=== PATIENT | female | born 2000 | race Caucasian/White ===

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

== ENCOUNTER 2019-06-08 15:18 | Emergency (ER) | payer BC ==
[2019-06-08 15:29] VITALS: RESP 18; TEMP 97.8
[2019-06-08] MEDS ORDERED: SODIUM CHLORIDE 0.9% 1,000 ML IV STA (15:35)
[2019-06-08 16:26] LABS: Basophils # (A) 0.1 k/uL (0-0.2); Basophils % (A) 1 %; Eosinophils # (A) 0.1 k/uL (0-0.7); Eosinophils % (A) 1 %; HCT 38.4 % (34.0-46.0); HGB 12.5 gm/dL (11.4-16.0); Lymphocytes # (A) 0.8 k/uL (1.0-4.8); Lymphocytes % (A) 10 %; MCH 26.9 pg (25.0-35.0); MCHC 32.6 g/dL (31.0-37.0); MCV 82.4 fL (80.0-100.0); Mean Platelet Volume 7.3; Monocytes # (A) 0.4 k/uL (0-1.0); Monocytes % (A) 5 %; Neutrophils # (A) 6.7 k/uL (1.3-7.7); Neutrophils % (A) 83 %; Platelet Count 270 k/uL (150-450); RBC 4.66 m/uL (3.80-5.40); RDW 13.2 % (11.5-15.5); WBC 8.1 k/uL (4.0-11.0)
[2019-06-08 16:39] LABS: ALT 19 U/L (4-34); AST 21 U/L (14-36); African American GFR (CKD) >90 (>60 ml/min/1.73 sqM); Albumin 4.7 g/dL (3.5-5.0); Alkaline Phosphatase 76 U/L (38-126); Anion Gap 13 mmol/L; Blood Urea Nitrogen 11 mg/dL (7-17); Calcium 9.6 mg/dL (8.4-10.2); Carbon Dioxide 21 mmol/L (22-30); Chloride 106 mmol/L (98-107); Glucose 107 mg/dL (74-99); Magnesium 1.8 mg/dL (1.6-2.3); Non-African American GFR(CKD) >90 (>60 ml/min/1.73 sqM); Potassium 4.2 mmol/L (3.5-5.1); Sodium 140 mmol/L (137-145); Total Protein 7.8 g/dL (6.3-8.2)
[2019-06-08 16:42] VITALS: BP 116/87
[2019-06-08 16:44] LABS: INR 1.1 (<1.2); Prothrombin Time 11.3 sec (9.0-12.0)
[2019-06-08 17:08] LABS: Appearance,Urine Cloudy (Clear); Bilirubin,Urine Negative (Negative); Blood,Urine Negative (Negative); Color,Urine Yellow; Glucose,Urine (UA) Negative (Negative); Hyaline Casts,Urine 1 /lpf (0-2); Ketones,Urine Negative (Negative); Leukocyte Esterase,Urine Negative (Negative); Mucus,Urine Occasional /hpf; Nitrite,Urine Negative (Negative); PH, Urine 6.5 (5.0-8.0); Protein,Urine Trace (Negative); RBC,Urine <1 /hpf (0-5); Specific Gravity,Urine 1.024 (1.001-1.035); Squamous Epithelial Cell,Urine 8 /hpf (0-4); Urobilinogen,Urine <2.0 mg/dL (<2.0); WBC,Urine 2 /hpf (0-5)
[2019-06-08 17:19] LABS: Amphetamine Screen,Urine Not Detected (NotDetected); Barbiturate Screen,Urine Not Detected (NotDetected); Benzodiazepines Screen,Urine Not Detected (NotDetected); Cocaine Screen,Urine Not Detected (NotDetected); Methadone Screen, Urine Not Detected (NotDetected); Opiate Screen,Urine Not Detected (NotDetected); Oxycodone Screen, Urine Not Detected (NotDetected); Phencyclidine Screen,Urine Not Detected (NotDetected); Tricyclic Antidepressant,Urine Not Detected (NotDetected); Urn Cannabinoid Scrn Detected (NotDetected)
--- NOTE | 2019-06-08 17:42 | ED ---
General Adult HPI - General Chief complaint: Arrhythmia/Palpitations Stated complaint: Tachycardia Time Seen by Provider: 06/08/19 15:31 Source: patient, family, EMS, RN notes reviewed, old records reviewed Mode of arrival: EMS Limitations: altered mental status - History of Present Illness Initial comments: 18-year-old female patient presents to ED for chief complaint of nausea, heart palpitations, mild dizziness. Patient reports that she ate a cake which was laced marijuana. After she began to feel her heart racing and some dizziness and nausea without emesis. Patient went to urgent care at a time her heart rate is elevated reportedly in the 150s 160s. They then sent her here. Denies any chest pain shortness of breath. Denies a chance of being any abdominal pain. Denies any other complaints at this time. Systemic: Pt denies fatigue, fever/chills, rash. Pt denies weakness, night sweats, weight loss. Neuro: Pt denies headache, visual disturbances, syncope or pre-syncope. HEENT: Pt denies ocular discharge or irritation, otalgia, rhinorrhea, pharyngitis or notable lymphadenopathy. Cardiopulmonary: Pt denies chest pain, SOB, heart palpitations, dyspnea on exertion. Abdominal/GI: Pt denies abdominal pain, n/v/d. : Pt denies dysuria, burning w/ urination, frequency/urgency. Denies new onset urinary or bowel incontinence. MSK: Pt denies myalgia, loss of strength or function in extremities. Neuro: Pt denies new onset weakness, paresthesias. - Related Data Home Medications Medication Instructions Recorded Confirmed Apri 28 Day 1 tab PO HS 08/21/17 08/21/17 Folic Acid 0.4 mg PO DAILY 08/21/17 08/21/17 levETIRAcetam 750 mg PO BID 08/21/17 08/21/17 Allergies Allergy/AdvReac Type Severity Reaction Status Date / Time No Known Allergies Allergy Verified 10/26/18 14:53 Review of Systems ROS Statement: Those systems with pertinent positive or pertinent negative responses have been documented in the HPI. ROS Other: All systems not noted in ROS Statement are negative. Past Medical History Past Medical History: Seizure Disorder History of Any Multi-Drug Resistant Organisms: None Reported Past Surgical History: Orthopedic Surgery Additional Past Surgical History / Comment(s): Left ACL, fx right finger Past Psychological History: No Psychological Hx Reported Smoking Status: Never smoker Past Alcohol Use History: Occasional Past Drug Use History: Marijuana General Exam - General Exam Comments Initial Comments: Constitutional: NAD, AOX3, Pt has pleasant affect. HEENT: NC/AT, trachea midline, neck supple, no lymphadenopathy. Posterior pharynx non erythematous, without exudates. External ears appear normal, without discharge. Mucous membranes moist. Eyes PERRLA, EOM intact. There is no scleral icterus. No pallor noted. Cardiopulmonary: RRR, no murmurs, rubs or gallops, no JVD noted. Lungs CTAB in anterior and posterior her. No peripheral edema. Abdominal exam: Abdomen soft and non-distended. Abdomen non-tender to palpation in all 4 quadrants. Bowel sounds active in LLQ. No hepatosplenomegaly. No ecchymosis Neuro: CN II-XII intact. No nuchal rigidity. No raccon eyes, no noonan sign, no hemotympanum. No cervical spinal tenderness. MSK: No posterior calf tenderness bilaterally, homans sign negative bilaterally. Posterior tibialis and radial pulse +2 bilaterally. Sensation intact in upper and lower extremities. Full active ROM in upper and lower extremities, 5/5 stregnth. Limitations: altered mental status Course Vital Signs 06/08/19 06/08/19 15:22 16:42 Temperature 97.8 F Pulse Rate 124 H 110 H Respiratory 18 18 Rate Blood Pressure 101/70 116/87 O2 Sat by Pulse 100 97 Oximetry Medical Decision Making - Medical Decision Making 18-year-old female patient presents to ED for heart palpitations, elevated heart rate, some dizziness and nausea after eating a marijuana cake. Was sent over from urgent care. Patient vital signs did initially displayed mild tachycardia. Laboratory investigations are nonimmpressive. He a negative. Drug screen did show positive for THC. After administration of fluids patient is asymptomatic. Heart rate 86 at discharge. Denies any complaints. Will be advised to or marijuana products or illicit drugs going forward. We'll turn ER if condition worsens. Case discussed with Dr. Fraga. - Lab Data Result diagrams: 06/08/19 16:05 06/08/19 16:05 Lab Results 06/08/19 06/08/19 06/08/19 Range/Units 16:05 16:05 16:05 WBC 8.1 (4.0-11.0) k/uL RBC 4.66 (3.80-5.40) m/uL Hgb 12.5 (11.4-16.0) gm/dL Hct 38.4 (34.0-46.0) % MCV 82.4 (80.0-100.0) fL MCH 26.9 (25.0-35.0) pg MCHC 32.6 (31.0-37.0) g/dL RDW 13.2 (11.5-15.5) % Plt Count 270 (150-450) k/uL Neutrophils % 83 % Lymphocytes % 10 % Monocytes % 5 % Eosinophils % 1 % Basophils % 1 % Neutrophils # 6.7 (1.3-7.7) k/uL Lymphocytes # 0.8 L (1.0-4.8) k/uL Monocytes # 0.4 (0-1.0) k/uL Eosinophils # 0.1 (0-0.7) k/uL Basophils # 0.1 (0-0.2) k/uL PT 11.3 (9.0-12.0) sec INR 1.1 (<1.2) APTT 22.0 (22.0-30.0) sec Sodium 140 (137-145) mmol/L Potassium 4.2 (3.5-5.1) mmol/L Chloride 106 (98-107) mmol/L Carbon Dioxide 21 L (22-30) mmol/L Anion Gap 13 mmol/L BUN 11 (7-17) mg/dL Creatinine 0.86 (0.52-1.04) mg/dL Est GFR (CKD-EPI)AfAm >90 (>60 ml/min/1.73 sqM) Est GFR (CKD-EPI)NonAf >90 (>60 ml/min/1.73 sqM) Glucose 107 H (74-99) mg/dL Calcium 9.6 (8.4-10.2) mg/dL Magnesium 1.8 (1.6-2.3) mg/dL Total Bilirubin 1.0 (0.2-1.3) mg/dL AST 21 (14-36) U/L ALT 19 (4-34) U/L Alkaline Phosphatase 76 (38-126) U/L Troponin I (0.000-0.034) ng/mL Total Protein 7.8 (6.3-8.2) g/dL Albumin 4.7 (3.5-5.0) g/dL TSH 1.010 (0.465-4.680) mIU/L Urine Color Urine Appearance (Clear) Urine pH (5.0-8.0) Ur Specific [place] (1.001-1.035) Urine Protein (Negative) Urine Glucose (UA) (Negative) Urine Ketones (Negative) Urine Blood (Negative) Urine Nitrite (Negative) Urine Bilirubin (Negative) Urine Urobilinogen (<2.0) mg/dL Ur Leukocyte Esterase (Negative) Urine RBC (0-5) /hpf Urine WBC (0-5) /hpf Ur Squamous Epith Cells (0-4) /hpf Hyaline Casts (0-2) /lpf Urine Mucus (None) /hpf Urine HCG, Qual (Not Detectd) Urine Opiates Screen (NotDetected) Ur Oxycodone Screen (NotDetected) Urine Methadone Screen (NotDetected) Ur Propoxyphene Screen (NotDetected) Ur Barbiturates Screen (NotDetected) U Tricyclic Antidepress (NotDetected) Ur Phencyclidine Scrn (NotDetected) Ur Amphetamines Screen (NotDetected) U Methamphetamines Scrn (NotDetected) U Benzodiazepines Scrn (NotDetected) Urine Cocaine Screen (NotDetected) U Marijuana (THC) Screen (NotDetected) 06/08/19 06/08/19 06/08/19 Range/Units 16:05 16:45 16:45 WBC (4.0-11.0) k/uL RBC (3.80-5.40) m/uL Hgb (11.4-16.0) gm/dL Hct (34.0-46.0) % MCV (80.0-100.0) fL MCH (25.0-35.0) pg MCHC (31.0-37.0) g/dL RDW (11.5-15.5) % Plt Count (150-450) k/uL Neutrophils % % Lymphocytes % % Monocytes % % Eosinophils % % Basophils % % Neutrophils # (1.3-7.7) k/uL Lymphocytes # (1.0-4.8) k/uL Monocytes # (0-1.0) k/uL Eosinophils # (0-0.7) k/uL Basophils # (0-0.2) k/uL PT (9.0-12.0) sec INR (<1.2) APTT (22.0-30.0) sec Sodium (137-145) mmol/L Potassium (3.5-5.1) mmol/L Chloride (98-107) mmol/L Carbon Dioxide (22-30) mmol/L Anion Gap mmol/L BUN (7-17) mg/dL Creatinine (0.52-1.04) mg/dL Est GFR (CKD-EPI)AfAm (>60 ml/min/1.73 sqM) Est GFR (CKD-EPI)NonAf (>60 ml/min/1.73 sqM) Glucose (74-99) mg/dL Calcium (8.4-10.2) mg/dL Magnesium (1.6-2.3) mg/dL Total Bilirubin (0.2-1.3) mg/dL AST (14-36) U/L ALT (4-34) U/L Alkaline Phosphatase (38-126) U/L Troponin I <0.012 (0.000-0.034) ng/mL Total Protein (6.3-8.2) g/dL Albumin (3.5-5.0) g/dL TSH (0.465-4.680) mIU/L Urine Color Yellow Urine Appearance Cloudy H (Clear) Urine pH 6.5 (5.0-8.0) Ur Specific [place] 1.024 (1.001-1.035) Urine Protein Trace H (Negative) Urine Glucose (UA) Negative (Negative) Urine Ketones Negative (Negative) Urine Blood Negative (Negative) Urine Nitrite Negative (Negative) Urine Bilirubin Negative (Negative) Urine Urobilinogen <2.0 (<2.0) mg/dL Ur Leukocyte Esterase Negative (Negative) Urine RBC <1 (0-5) /hpf Urine WBC 2 (0-5) /hpf Ur Squamous Epith Cells 8 H (0-4) /hpf Hyaline Casts 1 (0-2) /lpf Urine Mucus Occasional H (None) /hpf Urine HCG, Qual Not Detected (Not Detectd) Urine Opiates Screen Not Detected (NotDetected) Ur Oxycodone Screen Not Detected (NotDetected) Urine Methadone Screen Not Detected (NotDetected) Ur Propoxyphene Screen Not Detected (NotDetected) Ur Barbiturates Screen Not Detected (NotDetected) U Tricyclic Antidepress Not Detected (NotDetected) Ur Phencyclidine Scrn Not Detected (NotDetected) Ur Amphetamines Screen Not Detected (NotDetected) U Methamphetamines Scrn Not Detected (NotDetected) U Benzodiazepines Scrn Not Detected (NotDetected) Urine Cocaine Screen Not Detected (NotDetected) U Marijuana (THC) Screen Detected H (NotDetected) - EKG Data -: EKG Interpreted by Me (and Dr. Fraga ) EKG Comments: ventricular rate 99, FL interval 156, QRS 86, QT/QTC 340 since 436. Normal sinus rhythm, normal EKG, no concern for acute ischemia. Disposition Clinical Impression: Marijuana use, Palpitations Disposition: HOME SELF-CARE Condition: Stable Instructions (If sedation given, give patient instructions): Heart Palpitations (ED), Cannabis Abuse (ED) Additional Instructions: follow-up with primary care provider tomorrow. Return to ER if condition worsens in any way. Is patient prescribed a controlled substance at d/c from ED?: No Referrals: Dionne Oseguera DO [Primary Care Provider] - 1-2 days
[2019-06-08 18:12] VITALS: PULSE 89
== END 2019-06-08 18:11 | disposition home or self-care (01) ==
LOC: EC 15:18
DX: F12.988 Cannabis use, unspecified with other cannabis-induced disorder (principal); R00.2 Palpitations; R00.0 Tachycardia, unspecified; R42 Dizziness and giddiness; R11.0 Nausea; G40.909 Epilepsy, unspecified, not intractable, without status epilepticus; Z79.899 Other long term (current) drug therapy
CPT/HCPCS: 36415; 80053; 80306; 81001; 81025; 83735; 84443; 84484; 85025; 85610; 85730; 93005; 96360; 99285

== ENCOUNTER 2020-07-21 18:32 | Outpatient (CLI) | payer BC ==
[2020-07-21 19:24] VITALS: BP 119/83; PULSE 78; RESP 16; TEMP 97.5
--- NOTE | 2020-08-07 10:11 | P.MSEPDOC ---
Presenting Problems - Arrival Data Date of Arrival on Unit: 07/21/20 Time of Arrival on Unit: 18:22 Mode of Transport: Ambulatory - Complaint OB-Reason for Admission/Chief Complaint: Rule Out SROM Medical History - Information : 1 Para: 0 Number of Living Children: 0 - Gestational Age Gestational Age by QUANG (wks/days): 36 Weeks and 4 Days Review of Systems - Review of Systems Constitutional: No problems Breast: No problems ENT: No problems Cardiovascular: No problems Respiratory: No problems Gastrointestinal: No problems Genitourinary: No problems Musculoskeletal: No problems Neurological: No problems Skin: No problems Vital Signs - Temperature Temperature: 97.5 F Temperature Source: Temporal Artery Scan - Pulse Right Sitting Brachial Pulse Rate: 78 Pulse Assessment Method: Automatic Cuff - Respirations Respiratory Rate: 16 Oxygen Delivery Method: Room Air O2 Sat by Pulse Oximetry: 99 - Blood Pressure Right Arm Sitting Blood Pressure: 119/83 Blood Pressure Mean: 95 Blood Pressure Source: Automatic Cuff Medical Screen Scoring (Pre) - Cervical Exam Dilation: Exam Deferred Effacement: Exam Deferred Membranes: Intact - Uterine Contractions Frequency: N/A Duration: N/A Intensity: N/A - Maternal Vital Signs Maternal Temperature: N/A Maternal Blood Pressure: N/A Signs of Preeclampsia: N/A Maternal Respirations: N/A - Maternal Trauma Maternal Trauma: N/A - Assessment - Baby A Baseline FHR: 135 Heart Rate - NICHD Category: Category I (Normal) = 0 NST: Reactive Position: N/A Station: N/A - Total Score - Baby A Total Score - Baby A: 0 - Total Score - Baby B Total Score - Baby B: 0 - Total Score - Baby C Total Score - Baby C: 0 - Level of Risk - Baby A Level of Risk - Baby A: Low (0-5) - Level of Risk - Baby B Level of Risk - Baby B: Low (0-5) - Level of Risk - Baby C Level of Risk - Baby C: Low (0-5) Physician Notification (Pre) - Physician Notified Physician Notified Date: 07/21/20 Physician Notified Time: 19:05 New Order Received: Yes - Notification Comment Comment: discharge Disposition - Disposition OB Disposition: Discharge to home Discharge Date: 07/21/20 Discharge Time: 19:10 I agree with the RN Medical Screening Exam: Yes Physician's MSE Comment: I have neither seen nor examined this patient. Case reviewed; plan agreed upon as documented in EMR&OBIX.: Yes Diagnosis: RELATED CONDITIONS, UNSPECIFIED, THIRD TRIMESTER
== END 2020-07-21 19:10 | disposition home or self-care (01) ==
LOC: FBPOP 18:32
PROVIDERS: ATTEND Obstetrics & Gynecology
DX: O26.93 Pregnancy related conditions, unspecified, third trimester (principal); Z3A.36 36 weeks gestation of pregnancy
CPT/HCPCS: 59025; 84112; 99213

== ENCOUNTER 2020-08-08 12:20 | Outpatient (CLI) | payer BC, OTHER ==
[2020-08-08 20:09] VITALS: BP 143/85; PULSE 85; RESP 18; TEMP 98
== END 2020-08-08 14:15 | disposition home or self-care (01) ==
LOC: FBPOP 12:20
PROVIDERS: ATTEND Obstetrics & Gynecology
DX: O26.93 Pregnancy related conditions, unspecified, third trimester (principal); Z3A.39 39 weeks gestation of pregnancy
CPT/HCPCS: 59025; 99213

== ENCOUNTER 2020-08-14 01:46 | Inpatient (IN) | payer BC, OTHER ==
[2020-08-14] MEDS ORDERED: OXYTOCIN 10 UNIT/ML 1 ML VIAL IM PRN (03:16)
[2020-08-14] MEDS ORDERED: CARBOPROST TROMETHAMINE 250 MCG/ML 1 ML AMP IM PRN (03:16)
[2020-08-14] MEDS ORDERED: LIDOCAINE 0.5% (PF) 5 MG/ML (50 ML SDV) SQ PRN (03:16)
[2020-08-14] MEDS ORDERED: TERBUTALINE 1 MG/ML VIAL SQ PRN (03:16)
[2020-08-14] MEDS ORDERED: METHYLERGONOVINE 0.2 MG/ML 1 ML AMP IM PRN (03:16)
[2020-08-14] MEDS ORDERED: BUTORPHANOL 1 MG/ML 1 ML VIAL IV PRN (03:19)
[2020-08-14] MEDS: LACTATED RINGERS 1,000 ML IV SCH ×3 (03:30→09:14)
[2020-08-14 03:53] LABS: Basophils % (A) 1 %; Eosinophils # (A) 0.1 k/uL (0-0.7); Eosinophils % (A) 1 %; HCT 33.3 % (34.0-46.0); HGB 11.2 gm/dL (11.4-16.0); Hypochromasia Slight; Lymphocytes # (A) 1.6 k/uL (1.0-4.8); Lymphocytes % (A) 20 %; MCH 26.7 pg (25.0-35.0); MCHC 33.7 g/dL (31.0-37.0); MCV 79.3 fL (80.0-100.0); Mean Platelet Volume 7.5; Monocytes # (A) 0.4 k/uL (0-1.0); Monocytes % (A) 5 %; Neutrophils # (A) 5.6 k/uL (1.3-7.7); Neutrophils % (A) 72 %; Platelet Count 271 k/uL (150-450); Poikilocytosis Slight; RBC 4.19 m/uL (3.80-5.40); RDW 14.4 % (11.5-15.5); WBC 7.8 k/uL (3.8-10.6)
[2020-08-14] MEDS ORDERED: PENICILLIN G POTASSIUM 5,000,000 UNIT in DEXTROSE 5% IN WATER 100 ML IVPB STA ×2 (08:17)
[2020-08-14] MEDS ORDERED: SODIUM CHLORIDE 0.9% 100 ML BAG ONE (08:47)
[2020-08-14] MEDS ORDERED: fentaNYL (PF) 50 MCG/ML 5 ML AMP ONE (08:47)
[2020-08-14] MEDS ORDERED: ROPIVACAINE 5MG/ML 20ML VIAL ONE (08:47)
[2020-08-14] MEDS ORDERED: ROPIVACAINE 100 MG, fentaNYL (PF). 200 MCG in SODIUM CHLORIDE 0.9% 76 ML EPIDURAL ONE (09:52)
[2020-08-14] MEDS: OXYTOCIN 30 UNITS/500 ML NS 30 UNIT in SALINE 1 500ML.BAG IV SCH ×2 (10:00→16:48)
--- NOTE | 2020-08-14 10:23 | P.HPOB ---
History of Present Illness H&P Date: 08/14/20 Chief Complaint: Prolonged rupture of membranes This is a 20-year-old 2 para 0010 woman with an estimated due date of 08/14/2020 based on LMP consistent with early ultrasound. She presents with possible prolonged rupture of membranes. She's had increased vaginal discharge and "gushes" of fluid for 2 or 3 days. On initial evaluation in labor and delivery triage amnio sure testing is positive. She is irregularly nely. Her obstetric history is significant for epilepsy. She has been seizure free for quite some time however unfortunately has had 2 seizures in the last 7 days. She has been in close contact with her neurologist. She had been maintained throughout the on Keppra 750 mg daily. This was increased to 2000 mg daily and then 2500 mg daily. Her last seizure was approximately 7 days ago. Upon initial evaluation in labor and delivery triage rupture of membranes is confirmed and the patient is on 1-2 cm dilated and irregularly nely. heart tones category 1. Her medical history is also significant for an absent corpus callosum. She did have a maternal medicine consultation early in and has been followed closely by her neurologist. 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 History of Any Multi-Drug Resistant Organisms: None Reported Past Surgical History: Orthopedic Surgery Additional Past Surgical History / Comment(s): Left ACL, fx right finger Past Anesthesia/Blood Transfusion Reactions: No Reported Reaction Past Psychological History: No Psychological Hx Reported Smoking Status: Never smoker Past Alcohol Use History: Occasional Past Drug Use History: Marijuana Medications and Allergies Home Medications Medication Instructions Recorded Confirmed Type Folic Acid 800 mg PO DAILY MDD 800 08/21/17 08/14/20 History levETIRAcetam 2,000 mg PO BID MDD 2000 mg 08/21/17 08/14/20 History Pnv No.95/Ferrous Fum/Folic AC 1 each PO DAILY MDD 1 tab 08/08/20 08/14/20 History [ Multivitamin Tablet] Allergies Allergy/AdvReac Type Severity Reaction Status Date / Time No Known Allergies Allergy Verified 08/14/20 01:58 Exam Vital Signs Temp Pulse Resp BP 08/14/20 03:16 97.7 F 80 20 142/88 Intake and Output 08/13/20 08/14/20 08/14/20 22:59 06:59 14:59 Intake Total 700 Balance 700 Intake: IV 700 Other: # Voids 4 # Bowel Movements 2 Weight 91.626 kg Upon my initial evaluation in labor and delivery the patient is uncomfortable with contractions. On targeted physical exam is performed. On on sterile vaginal examination the cervix is 3+ centimeters dilated, 90% effaced and the vertex is in the -1 station, cervix is posterior. heart tones are category 1 and she is irregularly and painfully nely. Follow-up exam after patient has received epidural anesthetic and is more comfortable, cervix is still 3+ centimeters dilated 90% effaced and vertex in the -1 station. There is a bulging bag of fluid which is ruptured and clear fluid is noted. Results Result Diagrams: 08/14/20 03:00 Abnormal Lab Results - Last 24 Hours (Table) 08/14/20 Range/Units 03:00 Hgb 11.2 L (11.4-16.0) gm/dL Hct 33.3 L (34.0-46.0) % MCV 79.3 L (80.0-100.0) fL Assessment and Plan (1) Prolonged rupture of membranes Current Visit: Yes Status: Acute Code(s): O42.90 - SINDY ROM, 7TH0 BETW RUPT & ONST LABR, UNSP WEEKS OF GEST SNOMED Code(s): 24048065 (2) Maternal seizure disorder Current Visit: Yes Status: Acute Code(s): O99.350 - DISEASES OF THE NERVOUS SYS COMP , UNSP TRIMESTER; G40.909 - EPILEPSY, UNSP, NOT INTRACTABLE, WITHOUT STATUS EPILEPTICUS SNOMED Code(s): 337920311 (3) Absent corpus callosum Current Visit: Yes Status: Acute Code(s): Q04.0 - CONGENITAL MALFORMATIONS OF CORPUS CALLOSUM SNOMED Code(s): 2703595 (4) 40 weeks gestation of Current Visit: Yes Status: Acute Code(s): Z3A.40 - 40 WEEKS GESTATION OF SNOMED Code(s): 83812621 Plan: This is a 20-year-old 2 para 0010 woman who is admitted with prolonged rupture of membranes at term. Group B strep status is negative however probiotic antibiotics will be initiated secondary to possible prolonged rupture of membranes. Early epidural anesthetic is placed to avoid pain and stress of labor in setting of maternal seizure disorder. Seizure precautions have been initiated as well. status is currently reassuring by external monitoring. Blood type is Rh+. Anticipate normal spontaneous vaginal delivery.
[2020-08-14] MEDS ORDERED: PENICILLIN G POTASSIUM 2,500,000 UNIT in DEXTROSE 5% IN WATER 100 ML IVPB SCH ×2 (13:00)
[2020-08-14] MEDS ORDERED: ACETAMINOPHEN TAB 325 MG TAB PO PRN (15:52)
[2020-08-14] MEDS ORDERED: SIMETHICONE 80 MG CHEWABLE PO PRN (15:52)
[2020-08-14] MEDS ORDERED: ZOLPIDEM 5 MG TAB PO PRN (15:52)
[2020-08-14] MEDS ORDERED: HYDROCORTISONE 2.5% RECTAL CREAM 30 GM TUBE RECTAL PRN (15:52)
[2020-08-14] MEDS ORDERED: diphenhydrAMINE 50 MG CAP PO PRN (15:52)
[2020-08-14] MEDS ORDERED: BENZOCAINE/MENTHOL SPRAY 1 GM/SPRAY AEROSOL TOPICAL PRN (15:52)
[2020-08-14] MEDS ORDERED: diphenhydrAMINE 50 MG/ML 1 ML VIAL IVP PRN ×2 (15:52)
[2020-08-14] MEDS ORDERED: LANOLIN CREAM 5 GM TUBE TOPICAL PRN (15:52)
[2020-08-14] MEDS ORDERED: diphenhydrAMINE 25 MG CAP PO PRN (15:52)
--- NOTE | 2020-08-14 15:52 | P.PROBDLV ---
Vaginal Delivery Note - . Vaginal Delivery Note: Findings: Female in the right occiput anterior position with Apgars of 8 at 1 minute and 8 at 5 minutes weighing 8 lbs. 8 oz., 3865 g. Second-degree perineal laceration. Intact, three-vessel cord placenta. EBL 300 mL's. Delivery summary: This is a 20-year-old 1 para 0 woman who presented at 40-0/7 weeks gestation complaining of prolonged rupture of membranes. Been having intermittent leaking of fluid for anywhere from 1-3 days. Upon presentation to labor and delivery triage in early childhood aide classroom hours of 08/14/2020 she had a positive amnio sure and was irregularly nely. She was admitted and ultimately Pitocin augmentation of labor was initiated. Her obstetric history is significant for maternal seizure disorder and seizure precautions were in place throughout the duration of her labor. She received an early epidural anesthetic for pain control. heart tones were category 1 throughout the first stage of labor. She also received prophylactic antibiotics secondary to possible prolonged rupture of membranes. She did have rupture of a large Talbot bag with clear fluid in the midst of her labor. Next She did reach complete cervical dilation by 1308 and commenced pushing with intermittent maternal effort. She did reach on eventually after a 2 hour and 20 minute second stage of labor. With the perineum was infused with lidocaine and a midline episiotomy was cut in anticipation of large head. She was also placed actively in the [place] position. With additional maternal effort the head did deliver from the right occiput anterior position. The anterior shoulder was delivered with internal rotation and facilitated the rest of the delivery of the . The nose and mouth were then bulb suctioned and the was placed on the maternal abdomen. Cord was eventually clamped and cut. Apgars were 8 at 1 minute and 8 at 5 minutes. The perineum was inspected and a second-degree midline episiotomy was noted. This was further infused with lidocaine and repaired with 3-0 Vicryl suture in the usual fashion. An intact, three-vessel cord placenta was delivered after approximately 10 minute third stage of labor. The uterus was massaged and there was mild atony noted at first. This was managed with Pitocin intravenously, bimanual uterine massage and a single dose of IM Methergine. EBL was approximately 300 mL's. The rest of the vagina and cervix were inspected and no further bleeding or lacerations were noted. Both mother and infant were doing well post delivery however oxygen saturations became lower and the was taken to the special care nursery for further assessment.
[2020-08-14] MEDS ORDERED: OXYTOCIN 30 UNITS/500 ML NS 30 UNIT in SALINE 1 500ML.BAG IV SCH (16:00)
[2020-08-14] MEDS: IBUPROFEN 600 MG TAB PO PRN (19:35)
[2020-08-14] MEDS: SENNOSIDES-DOCUSATE SODIUM 1 EACH TAB PO SCH (19:35)
[2020-08-14] MEDS: levETIRAcetam 500 MG TAB PO SCH (22:04)
[2020-08-15 06:20] LABS: Basophils % (A) 1 %; Eosinophils % (A) 1 %; HCT 24.7 % (34.0-46.0); Lymphocytes # (A) 1.4 k/uL (1.0-4.8); Lymphocytes % (A) 19 %; MCH 26.5 pg (25.0-35.0); MCHC 33.5 g/dL (31.0-37.0); MCV 79.1 fL (80.0-100.0); Mean Platelet Volume 7.6; Monocytes # (A) 0.5 k/uL (0-1.0); Monocytes % (A) 7 %; Neutrophils # (A) 5.3 k/uL (1.3-7.7); Neutrophils % (A) 73 %; Platelet Count 196 k/uL (150-450); Poikilocytosis Slight; RBC 3.12 m/uL (3.80-5.40); RDW 14.7 % (11.5-15.5); WBC 7.4 k/uL (3.8-10.6)
[2020-08-15 06:28] LABS: HGB 8.3 gm/dL (11.4-16.0)
[2020-08-15] MEDS: IBUPROFEN 600 MG TAB PO PRN ×2 (07:57→19:39)
[2020-08-15] MEDS: SENNOSIDES-DOCUSATE SODIUM 1 EACH TAB PO SCH ×2 (07:57→21:17)
--- NOTE | 2020-08-15 09:56 | P.PNOBGVD ---
Subjective - Subjective Principal diagnosis: day 1 Interval history: Feeling well. Moderate lochia. Patient reports: Reports appetite normal, Reports voiding normally, Reports pain well controlled, Reports ambulating normally, Denies dizzy ambulation [place]: doing well, nursing well Objective - Latest Vital Signs Latest vital signs: Vital Signs Temp Pulse Resp BP Pulse Ox 08/15/20 08:00 99.0 F 81 16 137/81 08/15/20 00:00 98.0 F 84 16 128/70 99 08/14/20 20:00 98.2 F 96 16 134/70 98 08/14/20 17:50 99.9 F H 88 16 136/68 08/14/20 17:20 93 16 142/79 08/14/20 16:50 71 16 133/76 08/14/20 16:35 78 16 138/75 08/14/20 16:20 78 16 132/70 08/14/20 16:05 83 16 130/69 08/14/20 15:50 91 16 123/66 Intake and Output 08/14/20 08/15/20 08/15/20 22:59 06:59 14:59 Intake Total 645.300 Output Total 300 Balance 345.300 Intake: Intake, IV Titration 395.300 Amount Oxytocin 30 Units/500 ml 395.300 Ns 30 unit In Saline 1 500ml.bag @ Per Protocol IV .Q0M [facility] Rx#:[id number] Oral 250 Output: Estimated Blood Loss 300 Other: # Voids 2 1 1 - Exam Extremities: Present: normal, edema Abdomen: Present: normal appearance, soft Uterus: Present: normal, firm - Labs Labs: Abnormal Lab Results - Last 24 Hours (Table) 08/15/20 Range/Units 05:53 RBC 3.12 L (3.80-5.40) m/uL Hgb 8.3 L D (11.4-16.0) gm/dL Hct 24.7 L (34.0-46.0) % MCV 79.1 L (80.0-100.0) fL Assessment and Plan (1) Prolonged rupture of membranes Current Visit: Yes Status: Acute Code(s): O42.90 - SINDY ROM, 7TH0 BETW RUPT & ONST LABR, UNSP WEEKS OF GEST SNOMED Code(s): 88680239 (2) Maternal seizure disorder Current Visit: Yes Status: Acute Code(s): O99.350 - DISEASES OF THE NERVOUS SYS COMP , UNSP TRIMESTER; G40.909 - EPILEPSY, UNSP, NOT INTRACTABLE, WITHOUT STATUS EPILEPTICUS SNOMED Code(s): 092107825 (3) Absent corpus callosum Current Visit: Yes Status: Acute Code(s): Q04.0 - CONGENITAL MALFORMATIONS OF CORPUS CALLOSUM SNOMED Code(s): 6624301 (4) 40 weeks gestation of Current Visit: Yes Status: Acute Code(s): Z3A.40 - 40 WEEKS GESTATION OF SNOMED Code(s): 94177315 (5) Normal spontaneous vaginal delivery Current Visit: Yes Status: Acute Code(s): O80 - ENCOUNTER FOR FULL-TERM UNCOMPLICATED DELIVERY SNOMED Code(s): 08989251 (6) Perineal laceration with delivery, second degree Current Visit: Yes Status: Acute Code(s): O70.1 - SECOND DEGREE PERINEAL LACERATION DURING DELIVERY SNOMED Code(s): 3782691 Plan: day #1 status post normal spontaneous vaginal delivery. Routine care. Anticipate discharge home tomorrow.
[2020-08-15] MEDS: levETIRAcetam 500 MG TAB PO SCH (21:52)
[2020-08-16] MEDS: IBUPROFEN 600 MG TAB PO PRN ×2 (08:34→16:01)
[2020-08-16] MEDS: SENNOSIDES-DOCUSATE SODIUM 1 EACH TAB PO SCH (08:35)
[2020-08-16 08:45] VITALS: RESP 18
--- NOTE | 2020-08-16 10:15 | P.DS ---
Providers Date of admission: 08/14/20 02:40 Expected date of discharge: 08/16/20 Attending physician: Rich Rossi Primary care physician: Stated None - Discharge Diagnosis(es) (1) Normal spontaneous vaginal delivery Current Visit: Yes Status: Acute Hospital Course: The patient is a 20-year-old 2 para 0010 admitted at 40-0/7 weeks by good dating parameters. She is admitted with documented spontaneous rupture of membranes, perhaps prolonged as the time of rupture is unclear. Her was complicated by history of a seizure disorder for which she had had 2 separate episodes of seizures in the last 2 weeks and was followed and managed by her neurologist. Otherwise her was essentially uncomplicated and group B strep status is negative. She was started on antibiotic prophylaxis for unknown length of rupture. She had an epidural catheter placed for analgesia and had Pitocin augmentation started. She ultimately progressed to complete and then pushed to a normal spontaneous vaginal delivery of a viable 8 lbs. 8 oz. baby girl with Apgars of 8 at 1 minute and 8 at 5 minutes. Her course was unremarkable with vital signs being stable and her temperature was afebrile throughout. She was deemed stable for discharge on day #2 was discharged home to follow-up in the office in 6 weeks' time routinely. Discharge instructions included calling for any significantly increased bleeding or foul-smelling lochia, significantly increased fever abdominal pain, perineal complaints, breast complaints, or anything else that concerned her. She was additionally instructed to have nothing in the vagina for at least 6 weeks time to include intercourse. She understood her instructions and agrees to follow up as noted above. Discharge medications included continued vitamins as she has opted to breast-feed. She additionally was to take [id number] analgesic pain medications as needed and all of her normal home medications including her antiepileptic medications. Maternal blood type is A+ and rubella status is immune. Procedures: #1. Antibiotic prophylaxis #2. Pitocin augmentation #3. Epidural analgesia #4. Normal spontaneous vaginal delivery #5. Midline episiotomy and repair Patient Condition at Discharge: Stable Plan - Discharge Summary New Discharge Prescriptions: No Action Folic Acid 800 mg PO DAILY MDD 800 levETIRAcetam 2,000 mg PO BID MDD 2000 mg Pnv No.95/Ferrous Fum/Folic AC [ Multivitamin Tablet] 1 each PO DAILY MDD 1 tab Discharge Medication List Folic Acid 800 mg PO DAILY MDD 800 08/21/17 [History] levETIRAcetam 2,000 mg PO BID MDD 2000 mg 08/21/17 [History] Pnv No.95/Ferrous Fum/Folic AC [ Multivitamin Tablet] 1 each PO DAILY MDD 1 tab 08/08/20 [History] Follow up Appointment(s)/Referral(s): Rich Rossi MD [STAFF PHYSICIAN] - 6 Weeks
[2020-08-16 17:09] VITALS: BP 121/64; PULSE 80; TEMP 97.8
== END 2020-08-16 18:33 | disposition home or self-care (01) | DRG 805 ==
LOC: FBPOP 01:46 → 4FBP 02:40
PROVIDERS: ADMIT Obstetrics & Gynecology; ATTEND Obstetrics & Gynecology
PROC: 10E0XZZ Delivery of Products of Conception, External Approach (ICD-10-PCS; principal; 2020-08-14)
PROC: 0KQM0ZZ Repair Perineum Muscle, Open Approach (ICD-10-PCS; 2020-08-14)
PROC: 0W8NXZZ Division of Female Perineum, External Approach (ICD-10-PCS; 2020-08-14)
DX: O42.12 Full-term premature rupture of membranes, onset of labor more than 24 hours following rupture (principal); Q04.0 Congenital malformations of corpus callosum; Z37.0 Single live birth; O99.354 Diseases of the nervous system complicating childbirth; O70.1 Second degree perineal laceration during delivery; Z3A.40 40 weeks gestation of pregnancy; G40.909 Epilepsy, unspecified, not intractable, without status epilepticus
CPT/HCPCS: 59025; 84112; 85025; 86850; 86900; 86901; 99213

== ENCOUNTER 2022-02-20 10:29 | Day surgery (SDC) | payer OTHER ==
[2022-02-17 09:27] VITALS: BMI 28.3
[~2022-02-20 10:29] MED LIST: SODIUM CHLORIDE 0.9% 1,000 ML IV SCH
[2022-02-20] MEDS ORDERED: SODIUM CHLORIDE 0.9% 500 ML 500 ML IV ONE (11:15)
[2022-02-20 11:17] VITALS: BP 125/75; PULSE 83; RESP 16; TEMP 98.2
--- NOTE | 2022-02-20 15:26 | P.EPPROC ---
- EP Procedure Note Electrophysiology Procedure Note: Diagnosis Recurrent presyncope Twelve-lead EKG Sinus mechanism normal MT narrow QRS normal ST segments Early repolarization abnormality inferolaterally, normal variant Tilt table test per protocol This line blood pressure 106/59 mmHg, Baseline heart rate 65 beats a minute Patient was tilted upright at [facility] degrees per protocol. Heart rate increased 108 beats a minute within the first 10 minutes It remained above 100 beats a minute control the test When she was laid supine it came down to 66 beats a minute Blood pressure remained stable She was lightheaded upon assuming upright position but had no other symptoms for the rest of the procedure Impression Orthostatic intolerance Normal twelve-lead EKG
== END 2022-02-20 14:20 | disposition home or self-care (01) ==
LOC: CATHEP 10:29
PROVIDERS: ATTEND Internal Medicine Clinical Cardiac Electrophysiology
DX: R55 Syncope and collapse (principal); Z20.822 Contact with and (suspected) exposure to COVID-19; Z79.899 Other long term (current) drug therapy; Z83.3 Family history of diabetes mellitus
CPT/HCPCS: 81025; 87635; 93660

== ENCOUNTER 2024-09-16 16:39 | Outpatient (CLI) | payer OTHER ==
[2024-09-16 19:09] VITALS: BP 131/81; PULSE 101; RESP 18; TEMP 96.7
--- NOTE | 2024-10-05 00:23 | P.MSEPDOC ---
Presenting Problems - Arrival Data Date of Arrival on Unit: 09/16/24 Time of Arrival on Unit: 16:39 Mode of Transport: Ambulatory - Complaint OB-Reason for Admission/Chief Complaint: Rule Out SROM Comment: pt c/o increase discharge/ possible SROM. PT reporting "ceballos-brown" colored discharge. Pt reports discharge occasionally throughout has increased over last 3 days. Medical History - Information : 3 Para: 1 Term: 1 : 0 Abortions: Spontaneous or Elective: 1 Number of Living Children: 1 - Gestational Age Gestational Age by QUANG (wks/days): 32 Weeks and 2 Days Review of Systems - Review of Systems Constitutional: No problems Breast: No problems ENT: No problems Cardiovascular: No problems Respiratory: No problems Gastrointestinal: No problems Genitourinary: No problems Musculoskeletal: No problems Neurological: No problems Skin: No problems Vital Signs - Temperature Temperature: 96.7 F Temperature Source: Temporal Artery Scan - Pulse Pulse Oximetery Pulse Rate: 101 Pulse Assessment Method: Pulse Oximetry - Respirations Respiratory Rate: 18 Oxygen Delivery Method: Room Air O2 Sat by Pulse Oximetry: 98 - Blood Pressure Right Arm Blood Pressure: 131/81 Blood Pressure Mean: 97 Blood Pressure Source: Automatic Cuff Medical Screen Scoring - Uterine Contractions Resting: Soft to palpation - Assessment - Baby A Baseline FHR: 135 Heart Rate - NICHD Category: Category I (Normal) NST: Reactive Physician Notification - Physician Notified Physician Notified Date: 09/16/24 Physician Notified Time: 17:30 Physician: Liseth Jewell New Order Received: Yes (Discharge home with follow up instructions.) Maternal Triage Index - Maternal Triage Index Presenting for scheduled procedure w/no complaint: No - Stat/Priority 1 Stat Priority 1: No - Urgent/Priority 2 Urgent Priority 2: Yes Provider Notified: Liseth Jewell Provider Notified Time: 17:30 Criteria Met for Priority 2: "ceballos-brown" discharge increasing over last 3 days. Disposition - Disposition OB Disposition: Discharge to home Discharge Date: 09/16/24 Discharge Time: 17:58 I agree with the RN Medical Screening Exam: Yes Case reviewed; plan agreed upon as documented in EMR&OBIX.: Yes Diagnosis: RELATED CONDITIONS, UNSPECIFIED, THIRD TRIMESTER
== END 2024-09-16 17:58 | disposition home or self-care (01) ==
LOC: FBPOP 16:39
PROVIDERS: ATTEND Obstetrics & Gynecology Obstetrics
DX: O26.93 Pregnancy related conditions, unspecified, third trimester (principal); Z3A.32 32 weeks gestation of pregnancy
CPT/HCPCS: 59025; 84112; G0463; 99213

== ENCOUNTER 2024-10-28 09:48 | Outpatient (CLI) | payer OTHER ==
[2024-10-28 11:11] VITALS: BP 124/72; PULSE 106; RESP 16; TEMP 96.8
--- NOTE | 2024-11-08 11:25 | P.MSEPDOC ---
Presenting Problems - Arrival Data Date of Arrival on Unit: 10/28/24 Time of Arrival on Unit: 09:48 Mode of Transport: Ambulatory - Complaint OB-Reason for Admission/Chief Complaint: Rule Out SROM Medical History - Information : 3 Para: 1 Term: 1 : 0 Abortions: Spontaneous or Elective: 1 Number of Living Children: 1 - Gestational Age Gestational Age by QUANG (wks/days): 38 Weeks and 2 Days Review of Systems - Review of Systems Constitutional: No problems Breast: No problems ENT: No problems Cardiovascular: No problems Respiratory: No problems Gastrointestinal: No problems Genitourinary: No problems Musculoskeletal: No problems Neurological: No problems Skin: No problems Vital Signs - Temperature Temperature: 96.8 F Temperature Source: Temporal Artery Scan - Pulse Right Pulse Rate: 106 Pulse Assessment Method: Automatic Cuff - Respirations Respiratory Rate: 16 Oxygen Delivery Method: Room Air O2 Sat by Pulse Oximetry: 97 - Blood Pressure Right Arm Blood Pressure: 124/72 Blood Pressure Mean: 89 Blood Pressure Source: Automatic Cuff Medical Screen Scoring - Assessment - Baby A Baseline FHR: 140 Heart Rate - NICHD Category: Category I (Normal) NST: Reactive Physician Notification - Physician Notified Physician Notified Date: 10/28/24 Physician Notified Time: 10:25 Physician: Rich Rossi Order Received: Yes (discharge home) Maternal Triage Index - Maternal Triage Index Presenting for scheduled procedure w/no complaint: No - Stat/Priority 1 Stat Priority 1: No - Urgent/Priority 2 Urgent Priority 2: No - Prompt/Priority 3 Prompt Priority 3: Yes Criteria Met for Priority 3: ROM ruled out Disposition - Disposition OB Disposition: Discharge to home Discharge Date: 10/28/24 Discharge Time: 10:30 I agree with the RN Medical Screening Exam: Yes Physician's MSE Comment: I have neither seen nor examined the patient. Case reviewed; plan agreed upon as documented in EMR&OBIX.: Yes Diagnosis: RELATED CONDITIONS, UNSPECIFIED, THIRD TRIMESTER
== END 2024-10-28 10:30 | disposition home or self-care (01) ==
LOC: FBPOP 09:48
PROVIDERS: ATTEND Obstetrics & Gynecology
DX: O26.893 Other specified pregnancy related conditions, third trimester (principal); Z3A.38 38 weeks gestation of pregnancy
CPT/HCPCS: 59025; 84112; G0463; 99213

== ENCOUNTER 2024-11-01 11:31 | Outpatient (CLI) | payer OTHER ==
[2024-11-01 12:21] VITALS: BP 121/68; PULSE 96; RESP 15; TEMP 97.9
--- NOTE | 2024-11-05 20:25 | P.MSEPDOC ---
Presenting Problems - Arrival Data Date of Arrival on Unit: 11/01/24 Time of Arrival on Unit: 11:31 Mode of Transport: Ambulatory - Complaint OB-Reason for Admission/Chief Complaint: Rule Out SROM Medical History - Information : 3 Para: 1 Term: 1 : 0 Abortions: Spontaneous or Elective: 1 Number of Living Children: 1 - Gestational Age Gestational Age by QUANG (wks/days): 38 Weeks and 6 Days Review of Systems - Review of Systems Constitutional: No problems Breast: No problems ENT: No problems Cardiovascular: No problems Respiratory: No problems Gastrointestinal: No problems Genitourinary: No problems Musculoskeletal: No problems Neurological: No problems Skin: No problems Vital Signs - Temperature Temperature: 97.9 F Temperature Source: Temporal Artery Scan - Pulse Pulse Oximetery Pulse Rate: 96 Pulse Assessment Method: Pulse Oximetry - Respirations Respiratory Rate: 15 Oxygen Delivery Method: Room Air O2 Sat by Pulse Oximetry: 97 - Blood Pressure Right Arm Sitting Blood Pressure: 121/68 Blood Pressure Mean: 85 Blood Pressure Source: Automatic Cuff Medical Screen Scoring - Cervical Exam Dilation (cm): 0 Membranes: Intact - Assessment - Baby A Baseline FHR: 125 Heart Rate - NICHD Category: Category I (Normal) NST: Reactive Physician Notification - Physician Notified Physician Notified Date: 11/01/24 Physician Notified Time: 12:03 Physician: May Oswald Order Received: Yes - Notification Comment Comment: gest age 38 6/7, , r/o SROM. Negative Amnisure, cervix FT and posterior with reactive NST and irregular contx. Orders received to dc pt home and f/u with [facility] 11/03/24 Maternal Triage Index - Stat/Priority 1 Stat Priority 1: No - Urgent/Priority 2 Urgent Priority 2: No - Prompt/Priority 3 Prompt Priority 3: No - Non-Urgent/Priority 4 Non-Urgent Priority 4: Yes Criteria Met for Priority 4: r/o SROM Disposition - Disposition OB Disposition: Triage, Discharge to home, Written follow up instructions reviewed Discharge Date: 11/01/24 Discharge Time: 12:09 I agree with the RN Medical Screening Exam: Yes Physician's MSE Comment: I have neither seen no examined the patient Case reviewed; plan agreed upon as documented in EMR&OBIX.: Yes Diagnosis: FALSE LABOR, UNSPECIFIED
== END 2024-11-01 12:09 | disposition home or self-care (01) ==
LOC: FBPOP 11:31
PROVIDERS: ATTEND Obstetrics & Gynecology
DX: O47.1 False labor at or after 37 completed weeks of gestation (principal); Z3A.38 38 weeks gestation of pregnancy
CPT/HCPCS: 59025; 84112; G0463; 99213

== ENCOUNTER 2024-11-04 18:53 | Inpatient (IN) | payer OTHER ==
[2024-11-04] MEDS ORDERED: CARBOPROST TROMETHAMINE 250 MCG/ML 1 ML AMP IM PRN (19:27)
[2024-11-04] MEDS ORDERED: miSOPROStoL 200 MCG TAB PO PRN (19:27)
[2024-11-04] MEDS ORDERED: TERBUTALINE 1 MG/ML VIAL SQ PRN (19:27)
[2024-11-04] MEDS ORDERED: LIDOCAINE 0.5% (PF) 5 MG/ML (50 ML SDV) SQ PRN (19:27)
[2024-11-04] MEDS ORDERED: METHYLERGONOVINE 0.2 MG/ML 1 ML AMP IM PRN (19:27)
[2024-11-04] MEDS ORDERED: TRANEXAMIC 1,000 MG/100ML-NACL 1,000 MG in EMPTY BAG 1 BAG IV PRN (19:27)
[2024-11-04] MEDS ORDERED: miSOPROStoL 200 MCG TAB RECTAL PRN (19:27)
[2024-11-04] MEDS ORDERED: OXYTOCIN 10 UNIT/ML 1 ML VIAL IM PRN (19:27)
[2024-11-04] MEDS ORDERED: OXYTOCIN 30 UNITS/500 ML NS 30 UNIT in SALINE 1 500ML.BAG IV SCH (19:30)
[2024-11-04] MEDS: LACTATED RINGERS 1,000 ML IV SCH (19:40)
[2024-11-04] MEDS: DINOPROSTONE 10 MG INSERT.ER VAGINAL ONE (19:44)
--- NOTE | 2024-11-04 20:03 | P.HPOB ---
History of Present Illness H&P Date: 11/04/24 Chief Complaint: 39+ weeks, elective induction Patient is a 24-year-old 3 para 1-0-1-1 admitted at 39+ weeks as established by last menstrual period and confirmed by 9-week ultrasound. She is admitted for elective induction of labor with all signs reassuring, category 1 heart rate tracing. Her has been uncomplicated though she carries a history of seizure disorder which has been stable throughout the on Keppra and managed by neurology. Her cervix is reasonably unfavorable and she was [facility]erv[facility]il [facility] with subsequent induction tomorrow morning. Group B strep status is positive. Obstetrical history: 3 para 1-0-1-1 with 1 previous normal vaginal delivery at term. Current statistics are listed in history of present illness. EDC of 11/09/2022 was established by last menstrual period and confirmed by 9-week ultrasound. Laboratory workup demonstrates a blood type of A+ with a negative antibody screen. Rubella status is immune. The remainder of the laboratory workup was within normal limits. Early Glucola as well as second trimester Glucola were within normal limits. Group B strep status is positive. Gynecologic history: Unremarkable with no history of any infections to include STDs. Review of Systems Review of systems is confined to history of present illness. Past Medical History Past Medical History: Seizure Disorder Additional Past Medical History / Comment(s): See Dr Colon's H&P, states "all of sudden I feel like I am going to pass out mainly at work",Absent corpus call osum,last seizure December 2021-states "most seizures occur when sleeping",hx finger fx yrs ago History of Any Multi-Drug Resistant Organisms: None Reported Past Surgical History: Orthopedic Surgery Additional Past Surgical History / Comment(s): Left ACL Past Anesthesia/Blood Transfusion Reactions: No Reported Reaction Additional Past Anesthesia/Blood Transfusion Reaction / Comment(s): no hx blood transfusion Smoking Status: Never smoker - Past Family History Mother Family Medical History: Diabetes Mellitus Additional Family Medical History / Comment(s): type 1 Medications and Allergies Home Medications Medication Instructions Recorded Confirmed Type Folic Acid 800 mg PO HS MDD 800 08/21/17 10/28/24 History levETIRAcetam 1,500 mg PO BID 08/21/17 10/28/24 History Aspirin [Adult Low Dose Aspirin EC] 1 tab PO ONCE 09/16/24 10/28/24 History Vit No.179/Iron/Folic 1 tab PO ONCE 09/16/24 10/28/24 History [ Tablet] Lacosamide 150 mg PO 11/04/24 History Allergies Allergy/AdvReac Type Severity Reaction Status Date / Time No Known Allergies Allergy Verified 11/04/24 19:20 Exam Intake and Output 11/04/24 11/04/24 11/04/24 06:59 14:59 22:59 Other: Weight 101.605 kg In general, this is a well-developed, well-nourished white female in no acute distress. Her heart has a regular rhythm and rate without murmur. Her lungs are clear to auscultation bilaterally in all her. Her abdomen is gravid, nondistended, has normal active bowel sounds, is soft, nontender, and without any palpable masses aside from the uterine fundus. Her extremities are without any cyanosis, clubbing, or edema and are nontender to palpation bilaterally. Digital cervical examination demonstrates her cervix to be 1+ centimeters dilated, 50% effaced, with the vertex and presentation at -2-3 station and is quite posterior. Cervidil was placed in the posterior fornix per protocol. Assessment and Plan (1) Term Current Visit: Yes Status: Acute Code(s): Z34.90 - ENCNTR FOR SUPRVSN OF NORMAL , UNSP, UNSP TRIMESTER SNOMED Code(s): 79904065 Plan: The patient is admitted for Cervidil cervical ripening with subsequent Pitocin induction if necessary. Cervidil has been placed. The risks and complications of the procedure have been thoroughly discussed including the risk for hyperstimulation and potential . She will have close maternal and surveillance and expectant management will be practiced. She is a good candidate for either IV or epidural analgesia, whichever she may choose.
[2024-11-04 20:05] LABS: Basophils # (A) 0.02 10*3/uL (0.00-0.10); Basophils % (A) 0.3 %; Eosinophils # (A) 0.06 10*3/uL (0.04-0.35); Eosinophils % (A) 0.9 %; HCT 29.6 % (37.2-46.3); HGB 10.3 g/dL (12.0-15.0); Lymphocytes # (A) 1.05 10*3/uL (0.90-5.00); Lymphocytes % (A) 15.7 %; MCH 31.7 pg (27.0-32.0); MCHC 34.8 g/dL (32.0-37.0); MCV 91.1 fL (80.0-97.0); Mean Platelet Volume 9.8 fL (9.5-12.2); Monocytes # (A) 0.49 10*3/uL (0.20-1.00); Monocytes % (A) 7.3 %; Neutrophils % (A) 74.6 %; Platelet Count 177 10*3/uL (140-440); RBC 3.25 10*6/uL (4.10-5.20); RDW 13.9 % (11.5-14.5)
[2024-11-04] MEDS: BUTORPHANOL 1 MG/ML 1 ML VIAL IV PRN (23:04)
[2024-11-04] MEDS: PENICILLIN G POTASSIUM 5,000,000 UNIT in SODIUM CHLORIDE 0.9% 100 ML IVPB STA (23:10)
[2024-11-05] MEDS: PENICILLIN G POTASSIUM 2,500,000 UNIT in SODIUM CHLORIDE 0.9% 100 ML IVPB SCH (03:11)
[2024-11-05] MEDS: OXYTOCIN 30 UNITS/500 ML NS 30 UNIT in SALINE 1 500ML.BAG IV SCH (05:57)
[2024-11-05] MEDS ORDERED: FAMOTIDINE 20 MG/2 ML VIAL IV PRN (08:21)
--- NOTE | 2024-11-05 08:36 | P.PN ---
Subjective Progress Note Date: 11/05/24 Principal diagnosis: 39+ weeks, elective induction The patient had Cervidil placed last night and had fairly significant cramping causing the Cervidil to be removed at approximately 2:00 in the morning. She has continued to have contractions through the night and is moderately uncomfortable this morning. Objective - Vital Signs Vital signs: Vital Signs Temp 97.2 F L 11/04/24 19:15 Pulse 97 11/04/24 19:15 Resp 15 11/04/24 19:15 BP 139/76 11/04/24 19:15 Pulse Ox 98 11/04/24 19:15 FiO2 Intake & Output 11/04/24 11/05/24 11/05/24 18:59 06:59 18:59 Intake Total 480 Balance 480 Weight 101.605 kg Intake: Oral 480 Other: # Voids 2 - Exam Digital cervical examination demonstrates her cervix to be 2 cm dilated, approximately 50% effaced, with the vertex and presentation at -2 station, a significant change from last night. Artificial rupture of membranes is carried out demonstrating possibly lightly meconium stained fluid. - Labs CBC & Chem 7: 11/04/24 19:27 Labs: Abnormal Lab Results - Last 24 Hours (Table) 11/04/24 Range/Units 19:27 RBC 3.25 L (4.10-5.20) 10*6/uL Hgb 10.3 L (12.0-15.0) g/dL Hct 29.6 L (37.2-46.3) % Immature Gran # 0.08 H (0.00-0.04) 10*3/uL Assessment and Plan (1) Term Current Visit: Yes Status: Acute Code(s): Z34.90 - ENCNTR FOR SUPRVSN OF NORMAL , UNSP, UNSP TRIMESTER SNOMED Code(s): 17815554 Plan: Breast augmentation has been started. She will have close maternal and surveillance and expectant management will be practiced. She is a good candidate for either IV or epidural analgesia, whichever she may choose.
[2024-11-05] MEDS: ONDANSETRON 4 MG/2 ML VIAL IVP PRN (08:58)
[2024-11-05] MEDS ORDERED: LANOLIN CREAM 1 GM TUBE TOPICAL PRN (13:44)
[2024-11-05] MEDS ORDERED: ACETAMINOPHEN TAB 500 MG TAB PO PRN (13:44)
[2024-11-05] MEDS ORDERED: diphenhydrAMINE 50 MG/ML 1 ML VIAL IVP PRN ×2 (13:44)
[2024-11-05] MEDS ORDERED: diphenhydrAMINE 50 MG CAP PO PRN (13:44)
[2024-11-05] MEDS ORDERED: ZOLPIDEM 5 MG TAB PO PRN (13:44)
[2024-11-05] MEDS ORDERED: HYDROCORTISONE 2.5% RECTAL CREAM 30 GM TUBE RECTAL PRN (13:44)
[2024-11-05] MEDS ORDERED: diphenhydrAMINE 25 MG CAP PO PRN (13:44)
[2024-11-05] MEDS ORDERED: SIMETHICONE 80 MG CHEWABLE PO PRN (13:44)
[2024-11-05] MEDS ORDERED: BENZOCAINE/MENTHOL SPRAY 1 GM/SPRAY AEROSOL TOPICAL PRN (13:44)
--- NOTE | 2024-11-05 13:49 | P.PROBDLV ---
Vaginal Delivery Note - . Vaginal Delivery Note: Patient is a 24-year-old 3 para 1-0-1-1 admitted at 39+ weeks by good dating parameters. She is admitted for Cervidil cervical ripening and Pitocin induction to follow if necessary. Her has been entirely uncomplicated and group B strep status is positive. She does carry history of a seizure disorder stable throughout the on Keppra with no seizure activity throughout. On labor and delivery, all signs are reassuring with a category 1 heart rate tracing. Cervidil was placed in the posterior vaginal fornix per protocol. She did develop some tachysystole during the night causing the Cervidil to be removed but continued to contract regularly. She had antibiotic prophylaxis started for group B strep colonization and Pitocin augmentation started in the morning. She then underwent artificial rupture of membranes for clear fluid. She progressed to the onset of the active phase of labor and had an epidural catheter placed for analgesia. She then progressed quickly through the active phase of labor to complete and pushed over the course of approximately 25 minutes to a normal spontaneous vaginal delivery of a viable 8 pound 11 ounce baby boy with Apgars of 9 at 1 minute and 9 at 5 minutes delivered in the left occiput anterior position. The placenta was delivered spontaneously, intact, and grossly normal with a grossly normal, centrally inserted three-vessel cord. There was a small second-degree midline perineal laceration noted over the site of a previous episiotomy which was repaired in standard fashion using 3-0 chromic catgut without difficulty. Estimated blood loss for the case was approximately 200 mL. There were no complications. All sponge, instrument, and needle counts were correct. The patient tolerated the procedure well and both mother and are resting comfortably in recovery.
[2024-11-05] MEDS: SENNOSIDES-DOCUSATE SODIUM 1 EACH TAB PO SCH (20:20)
[2024-11-05] MEDS: IBUPROFEN 800 MG TAB PO PRN (20:20)
[2024-11-06 07:15] LABS: Basophils # (A) 0.04 10*3/uL (0.00-0.10); Basophils % (A) 0.4 %; Eosinophils # (A) 0.05 10*3/uL (0.04-0.35); Eosinophils % (A) 0.6 %; HCT 27.1 % (37.2-46.3); HGB 9.2 g/dL (12.0-15.0); Lymphocytes # (A) 1.17 10*3/uL (0.90-5.00); Lymphocytes % (A) 13.1 %; MCH 31.5 pg (27.0-32.0); MCHC 33.9 g/dL (32.0-37.0); MCV 92.8 fL (80.0-97.0); Mean Platelet Volume 10.4 fL (9.5-12.2); Monocytes # (A) 0.65 10*3/uL (0.20-1.00); Monocytes % (A) 7.3 %; Neutrophils # (A) 6.93 10*3/uL (1.80-7.70); Neutrophils % (A) 77.9 %; Platelet Count 143 10*3/uL (140-440); RBC 2.92 10*6/uL (4.10-5.20); RDW 14.1 % (11.5-14.5)
--- NOTE | 2024-11-06 08:48 | P.DS ---
Providers Date of admission: 11/04/24 18:53 Expected date of discharge: 11/06/24 Attending physician: Rich Rossi Primary care physician: Rich Rossi - Discharge Diagnosis(es) (1) Term Current Visit: Yes Status: Acute (2) Normal spontaneous vaginal delivery Current Visit: No Status: Acute Hospital Course: The patient is a 24-year-old 3 para 1-0-1-1 admitted at 39+ weeks by good dating parameters. She is admitted for Cervidil cervical ripening to be followed by Pitocin induction if necessary. On admission all signs are reassuring with a category 1 heart rate tracing. Her was uncomplicated though she does have a history of seizure disorder for which she has had no seizures and has been stable on Keppra followed by neurology throughout the . Group B strep status is positive. She had a Cervidil placed which was removed approximately 6 hours later secondary to uterine tachysystole. She continued to contract regularly and the following morning had antibiotic prophylaxis started as well as Pitocin augmentation. She underwent artificial rupture of membranes demonstrating clear fluid. She later had an epidural catheter placed for analgesia and then progressed quickly through the active phase of labor to complete. At 5 minutes. Her course was unremarkable with vital signs remaining stable and her temperature was afebrile throughout. She was deemed stable for discharge on day #1 was discharged home to follow-up in the office in 6 weeks time routinely. Discharge instructions included calling for any significantly increased bleeding or foul- smelling lochia, significantly increased her or abdominal pain, perineal complaints, breast complaints, or anything else that concerned her. She was additionally instructed to have nothing in the vagina for at least 6 weeks time to include intercourse. She understood her instructions and agrees to follow-up as noted above. Discharge medications included continued. Says she has opted to breast-feed as well as [id number] analgesic pain maternal blood type is a positive and rubella status is immune. Procedures: #1. Cervidil cervical ripening #2. Antibiotic prophylaxis #3. Pitocin augmentation #4. Epidural analgesia #5. Normal spontaneous vaginal delivery #6. Repair of perineal laceration Patient Condition at Discharge: Stable Plan - Discharge Summary New Discharge Prescriptions: No Action Folic Acid 800 mg PO HS MDD 800 levETIRAcetam 1,500 mg PO BID Aspirin [Adult Low Dose Aspirin EC] 1 tab PO ONCE Vit No.179/Iron/Folic [ Tablet] 1 tab PO ONCE Lacosamide 150 mg PO Discharge Medication List Folic Acid 800 mg PO HS MDD 800 08/21/17 [History] levETIRAcetam 1,500 mg PO BID 08/21/17 [History] Aspirin [Adult Low Dose Aspirin EC] 1 tab PO ONCE 09/16/24 [History] Vit No.179/Iron/Folic [ Tablet] 1 tab PO ONCE 09/16/24 [History] Lacosamide 150 mg PO 11/04/24 [History] Follow up Appointment(s)/Referral(s): Rich Rossi MD [Primary Care Provider] - 12/16/24 8:45 am Discharge Disposition: HOME SELF-CARE
[2024-11-06 09:51] VITALS: BP 127/83; PULSE 103; RESP 16; TEMP 97.7
== END 2024-11-06 14:13 | disposition home or self-care (01) | DRG 560 ==
LOC: 4FBP 18:53
PROVIDERS: ADMIT Obstetrics & Gynecology; ATTEND Obstetrics & Gynecology
PROC: 0KQM0ZZ Repair Perineum Muscle, Open Approach (ICD-10-PCS; principal; 2024-11-05)
PROC: 10E0XZZ Delivery of Products of Conception, External Approach (ICD-10-PCS; principal; 2024-11-05)
PROC: 3E0P7VZ Introduction of Hormone into Female Reproductive, Via Natural or Artificial Opening (ICD-10-PCS; principal; 2024-11-05)
DX: O99.354 Diseases of the nervous system complicating childbirth (principal); G40.909 Epilepsy, unspecified, not intractable, without status epilepticus; O99.824 Streptococcus B carrier state complicating childbirth; Q04.0 Congenital malformations of corpus callosum; O70.1 Second degree perineal laceration during delivery; Z3A.39 39 weeks gestation of pregnancy; Z37.0 Single live birth
CPT/HCPCS: 85025; 86850; 86900; 86901